=== PATIENT | female | born 1955 | race Caucasian/White ===

== ENCOUNTER 2016-06-07 14:40 | Emergency (ER) | payer OTHER ==
[~2016-06-07] VITALS: Ht 149.9 cm; Wt 74.8 kg
[2016-06-07 14:46] VITALS: BP 121/76
--- NOTE | 2016-06-07 17:25 | ED GENERAL ADULT ---
History of Present Illness General Chief Complaint: Upper Respiratory Sx/Fever Stated Complaint: URI Source: patient Exam Limitations: no limitations Vital Signs & Intake/Output Vital Signs & Intake/Output Vital Signs Date Time Temp Pulse Resp B/P Pulse O2 O2 Flow FiO2 Ox Delivery Rate 06/07 1744 96 Room Air 06/07 1446 99.5 68 20 121/76 96 Room Air Allergies Coded Allergies: NO KNOWN ALLERGIES (11/23/12) Reconcile Medications Aspirin (Ecotrin*) 81 MG TABLET.DR 1 TAB PO DAILY HEART/BLOOD (Reported) Atorvastatin Calcium 40 MG TABLET 1 TAB PO DAILY CHOLESTEROL (Reported) Clopidogrel Bisulfate (Clopidogrel) 75 MG TABLET 1 TAB PO DAILY BLOOD THINNER (Reported) Diclofenac Sodium (Pennsaid) (Unknown Strength) 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 STATES SHE BEGAN TO HAVE URI SYMPTOMS AND THEN STARTED WITH N/V/D FRI/. STATES SHE WAS ABLE TO TOLERATE LIQUIDS YESTERDAY AND TODAY. DENIES CURRENT NAUSEA. ALSO C/O BODY ACHES. TEMP 99.5 Triage Nurses Notes Reviewed? yes Onset: Abrupt Duration: week(s): Timing: recent history HPI: 06/07/16 60-year-old female presents to the emergency department status post nausea vomiting and diarrhea. Subsequent to that she developed a cough and rhinorrhea and is concerned she may have pneumonia; she does admit to fever and chills. Also runny nose. The onset of her symptoms were abrupt, the duration has been 3 days, the severity is significant as her symptoms required her to come to the emergency department for care. She has no past medical history of asthma. No shortness of breath. On physical examination her abdomen is soft and nontender, lungs are clear. Dhe does have a cardiac history. She is status post stent. No chest pain today Past History Travel History Traveled to [place] past 21 day No Medical History Any Pertinent Medical History? see below for history Neurological: NONE EENT: NONE Cardiovascular: hypertension, HIGH CHOLESTEROL Respiratory: NONE Gastrointestinal: NONE Hepatic: NONE Renal: NONE Musculoskeletal: NONE Psychiatric: NONE Endocrine: NONE Blood Disorders: NONE Cancer(s): NONE MANAGER MINING/Reproductive: NONE Surgical History Surgical History: non-contributory Psychosocial History What is your primary language [place] Tobacco Use: Current Daily Use Daily Tobacco Use Amount/Type: => 5 Cigarettes daily Family History Hx Contributory? No Review of Systems Review of Systems Constitutional: Denies: fever. EENTM: Denies: visual changes. Respiratory: Reports: cough. Denies: short of breath. Cardiovascular: Denies: chest pain. GI: Denies: abdominal pain. Genitourinary: Reports: no symptoms. Musculoskeletal: Reports: no symptoms. Skin: Reports: no symptoms. Neurological/Psychological: Denies: headache. Hematologic/Endocrine: Denies: bruising. Immunologic/Allergic: Reports: no symptoms. Physical Exam Physical Exam General Appearance: well developed/nourished, alert, awake, anxious, mild distress Head: atraumatic, normal appearance Eyes: Bilateral: normal appearance, PERRL, EOMI. Ears, Nose, Throat: normal pharynx, normal ENT inspection Neck: normal inspection, supple Respiratory: normal breath sounds, chest non-tender, no respiratory distress Cardiovascular: regular rate/rhythm Peripheral Pulses: 4+ radial (R), 4+ radial (L) Gastrointestinal: normal bowel sounds, soft, non-tender Back: normal range of motion Extremities: normal inspection, normal range of motion, no edema Neurologic/Psych: no motor/sensory deficits, awake, alert, oriented x 3 Skin: intact, normal color, warm/dry Core Measures ACS in differential dx? No CVA/TIA Diagnosis: No Severe Sepsis Present: No Septic Shock Present: No Progress Differential Diagnoses I considered the following diagnoses in my evaluation of the patient: [pneumonia , COPD asthma, upper respiratory tract infection, influenza] Plan of Care: Orders Procedure Date/time Status RAPID VIRAL INFLUENZA A 06/07 1701 Complete Initial ED EKG: none Departure Departure Disposition: HOME OR SELF CARE Condition: Stable Clinical Impression Primary Impression: Upper respiratory tract infection Referrals: FRANCESCA CROSS,RYLAN ESPINO (PCP) Departure Forms: Customer Survey General Discharge Information Comments Chest x-ray negative Influenza negative Patient will take [id number] analgesics as needed Follow-up with her doctor this week PATIENT: CARLOS ALBERTO CLARK PRESENT AGE: 60 PATIENT ACCOUNT NO: [id number] : 59 LOCATION: [facility] ORDERING PHYSICIAN: JACKI PATTON DO SERVICE DATE: 06/07/16-170 EXAM TYPE: RAD - XRY-CHEST XRAY, PA AND LATERAL EXAMINATION: CHEST 2 VIEWS CLINICAL INFORMATION: Cough, fever. COMPARISON: None. TECHNIQUE: PA and lateral views of the chest were obtained. FINDINGS: The cardiac silhouette is not enlarged. The mediastinal and hilar contours are unremarkable. There are neither pleural effusions nor pneumothoraces. There are no consolidations. The osseous structures are unremarkable. IMPRESSION: No evidence for acute disease. DICTATED BY: JUD CLARKE MD DATE/TIME DICTATED:06/07/161848 STAFF RESEARCH ASSOCIATE:KATRINA DATE/TIME TRANSCRIBED:06/07/161848 CONFIDENTIAL, DO NOT COPY WITHOUT APPROPRIATE AUTHORIZATION. <Electronically signed in Other Vendor System> SIGNED BY: JUD CLARKE MD 06/07/16 4236 Critical Care Note Critical Care Note Critical Care Time: non-applicable
[2016-06-07] MEDS ORDERED: ASPIRIN EC81 M1 PO (17:28)
[2016-06-07] MEDS ORDERED: METOPROLOL SUCC50 M2 PO (17:28)
[2016-06-07] MEDS ORDERED: ATORVASTATIN CA40 M1 PO (17:28)
[2016-06-07] MEDS ORDERED: CLOPIDOGREL75 M1 PO (17:28)
[2016-06-07] MEDS ORDERED: PENNSAID112 GM TOP (17:29)
--- NOTE | 2016-06-07 18:53 | RADIOLOGY REPORT ---
EXAMINATION: CHEST 2 VIEWS CLINICAL INFORMATION: Cough, fever. COMPARISON: None. TECHNIQUE: PA and lateral views of the chest were obtained. FINDINGS: The cardiac silhouette is not enlarged. The mediastinal and hilar contours are unremarkable. There are neither pleural effusions nor pneumothoraces. There are no consolidations. The osseous structures are unremarkable. IMPRESSION: No evidence for acute disease.
== END 2016-06-07 19:27 ==
LOC: ERH 14:40
DX: J06.9 Acute upper respiratory infection, unspecified (principal)
CPT/HCPCS: 87804; 87804-59